=== PATIENT | female | born 1985 ===

== ENCOUNTER 2019-09-28 14:18 | Emergency (ER) | payer MEDICAID ==
[2019-09-28 14:27] VITALS: BP 148/91
[2019-09-28] MEDS ORDERED: HYDROcodone/ACETAMINOPHEN 10-325MG TAB PO ONE (14:38)
[2019-09-28 15:54] LABS: Bilirubin,Urine NEG (Negative); Blood,Urine LG (Negative); Color,Urine Yellow (Yellow); Mucus,Urine FEW /HPF; Protein,Urine <15 mg/dL mg/dL (Negative); Urobilinogen,Urine < 2.0 mg/dL (<2.0)
--- NOTE | 2019-09-28 16:09 | Ultrasound Report ---
OB ultrasound FINDINGS: An elongated fluid collection in the lower uterine segment and cervix I suspect is a gestat ional sac. What appears to be a pole shows no cardiac activity. Both ovaries appear normal. No hemorrhage or free fluid. IMPRESSION: Probable impending Signer Name: Dave Jasso MD Signed: 09/28/2019 4:05 PM Workstation Name: [id number]
[2019-09-28 16:17] LABS: Hematocrit 40.8 % (30.3-42.9); Hemoglobin 13.8 gm/dl (10.1-14.3); Mean Corpuscular HGB Conc 34 % (30-34); Mean Corpuscular Volume 91 fl (79-97); Platelet Count 177 K/mm3 (140-440); Red Cell Distribution Width 13.8 % (13.2-15.2)
[2019-09-28 16:45] LABS: Alanine Aminotransferase 20 units/L (7-56); Albumin 4.7 g/dL (3.9-5); BUN/Creatinine Ratio 18; Blood Urea Nitrogen 9 mg/dL (7-17); Calcium 9.7 mg/dL (8.4-10.2); Hemolysis Index 18
[2019-09-28] MEDS ORDERED: POTASSIUM CHLORIDE ER 20 MEQ TAB PO ONE (16:47)
--- NOTE | 2019-09-28 17:06 | Emergency Department Report ---
ED HPI - General Chief complaint: Vaginal Bleeding Stated complaint: 10 WKS /POSS MISCARRIAGE Time Seen by Provider: 09/28/19 14:36 Source: patient, EMS Mode of arrival: Wheelchair Limitations: No Limitations - History of Present Illness Initial comments: This is a 34-year-old female nontoxic, well nourished in appearance, no acute signs of distress presents to the ED with c/o of vaginal bleeding and pelvic pain x1 month. Patient stated she was diagnosed with miscarriage due to no heart rate by her [employer] Dr. Lawrence Dozier from [facility]. Stated is about 10 weeks . Patient denies any upper abdominal pain. Patient denies any vaginal discharge or foul odor. Patient denies any nausea, vomiting, chest pain, shortness of breathe, fever, chills, headache, stiff neck, numbness, tingling. Patient denies any urinary symptoms. Patient stated allergies to PCN. MD Complaint: vaginal bleeding, other (pelvic pain) -: days(s) Location: pelvis Radiation: none Severity: mild Severity scale (0 -10): 8 Quality: cramping, aching Consistency: constant Improves with: none Worsens with: none Associated symptoms: vaginal bleeding. denies: nausea/vomiting, vaginal discharge, abdominal pain, dysuria, headache, vision changes, malaise, dysparuenia, rash, seizure, shortness of breath, syncope, weakness Vaginal bleeding: light :: Yes Number of weeks : 10 Pre- care: followed by OB ([facility] (Dr. Dozier)) - Related Data Previous Rx's Medication Instructions Recorded Last Taken Type Acetaminophen [Acetaminophen 8 650 mg PO Q8H PRN #20 tablet.er 09/28/19 Unknown Rx Hour] Allergies Allergy/AdvReac Type Severity Reaction Status Date / Time Penicillins Allergy Swelling Verified 04/16/16 18:19 ED Review of Systems ROS: Stated complaint: 10 WKS /POSS MISCARRIAGE Other details as noted in HPI Constitutional: denies: chills, fever Eyes: denies: eye pain, eye discharge, vision change ENT: denies: ear pain, throat pain Respiratory: denies: cough, shortness of breath, wheezing Cardiovascular: denies: chest pain, palpitations Endocrine: no symptoms reported Gastrointestinal: denies: abdominal pain, nausea, diarrhea Genitourinary: abnormal menses. denies: urgency, dysuria, discharge Musculoskeletal: denies: back pain, joint swelling, arthralgia Skin: denies: rash, lesions Neurological: denies: headache, weakness, paresthesias Psychiatric: denies: anxiety, depression Hematological/Lymphatic: denies: easy bleeding, easy bruising ED Past Medical Hx - Past Medical History Previous Medical History?: Yes Additional medical history: MULTIPLE MISCARRIAGES - Surgical History Past Surgical History?: No - Social History Smoking Status: Never Smoker Substance Use Type: None - Medications Home Medications: Home Medications Medication Instructions Recorded Confirmed Last Taken Type Acetaminophen [Acetaminophen 8 650 mg PO Q8H PRN #20 tablet.er 09/28/19 Unknown Rx Hour] ED Physical Exam - General Limitations: No Limitations General appearance: alert, in no apparent distress - Head Head exam: Present: atraumatic, normocephalic - Eye Eye exam: Present: normal appearance - Neck Neck exam: Present: normal inspection, full ROM. Absent: tenderness, meningismus, lymphadenopathy - GI/Abdominal GI/Abdominal exam: Present: soft, normal bowel sounds. Absent: distended, tenderness, guarding, rebound, rigid, diminished bowel sounds - Extremities Exam Extremities exam: Present: normal inspection, full ROM, normal capillary refill. Absent: tenderness - Back Exam Back exam: Present: normal inspection, full ROM. Absent: tenderness, CVA tenderness (R), CVA tenderness (L), muscle spasm, paraspinal tenderness, vertebral tenderness, rash noted - Neurological Exam Neurological exam: Present: alert, oriented X3, normal gait - Psychiatric Psychiatric exam: Present: normal affect, normal mood - Skin Skin exam: Present: warm, dry, intact, normal color. Absent: rash ED Course Vital Signs 09/28/19 14:25 Temperature 97.5 F L Pulse Rate 76 Respiratory 18 Rate Blood Pressure 148/91 O2 Sat by Pulse 97 Oximetry - Reevaluation(s) Reevaluation #1: 09/28/19 17:22 Patient is speaking in full sentences with no signs of distress noted. - Consultations Consultation #1: 09/28/19 17:19 Patient has been consulted with Dr. Lawrence Dozier ([phone]) about patient history, physical exam, and labs and stated patient can be discharged with follow-up in his office tomorrow morning at 11 AM. ED Medical Decision Making - Lab Data Result diagrams: 09/28/19 15:42 09/28/19 15:42 - Medical Decision Making This is a 34-year-old female presents with threatened miscarriage and hypokalemia. Patient is stable and was examined by me. Patient received 40 M EQ of PO potassium chloride in the ER. Normal abdominal exam. US OB obtained and dictated by the radiologist. Ua obtained and seems like a dirty catch. No nitrite noted or significant WBCs.. Quantative serum test obtained. Patient notified of the US report with no questions noted by the patient. Patient was instructed f/u with [employer]CHNICIAN tomorrow morning as per OBGYN requested. RH factor positive. Labs within normal limits. At time of discharge, the patient does not seem toxic or ill in appearance. No acute signs of distress noted. Patient agrees to discharge treatment plan of care. No further questions noted by the patient. Critical care attestation.: If time is entered above; I have spent that time in minutes in the direct care of this critically ill patient, excluding procedure time. ED Disposition Clinical Impression: Threatened miscarriage, Hypokalemia Disposition: DC-01 TO HOME OR SELFCARE Is pt being admited?: No Does the pt Need Aspirin: No Condition: Stable Instructions: Threatened Miscarriage (ED), Hypokalemia (ED) Additional Instructions: Follow-up with Dr. Dozier tomorrow morning as instructed to you in your visit today or if symptoms worsen and continue return to emergency room as soon as possible. Prescriptions: Acetaminophen [Acetaminophen 8 Hour] 650 mg PO Q8H PRN #20 tablet.er PRN Reason: Pain, Moderate (4-6) Referrals: PRIMARY CARE, [Primary Care Provider] - 3-5 Days Forms: Work/School Release Form(ED)
--- NOTE | 2019-09-28 17:40 | Ultrasound Report ---
Endovaginal OB ultrasound FINDINGS: Endovaginal study also demonstrates an elongated fluid structure in the lower uterine segme nt and cervix likely a gestational sac with a nonviable pole and again the appearance is most l ikely due to impending . Signer Name: Dave Jasso MD Signed: 09/28/2019 5:36 PM Workstation Name: [id number]
== END 2019-09-28 17:35 | disposition home or self-care (01) ==
LOC: ED 14:18
DX: O20.0 Threatened abortion (principal); O26.891 Other specified pregnancy related conditions, first trimester; E87.6 Hypokalemia; Z88.0 Allergy status to penicillin; Z79.899 Other long term (current) drug therapy; Z3A.10 10 weeks gestation of pregnancy
CPT/HCPCS: 36415; 76801; 76817; 80053; 81001; 84702; 85027; 86900; 86901; 87086